=== PATIENT | female | born 2000 | race Caucasian/White ===

== ENCOUNTER 2021-01-22 10:05 | Emergency (ER) | payer MEDICAID ==
[~2021-01-22] VITALS: Ht 175.3 cm; Wt 86.0 kg
[2021-01-22 11:09] LABS: MEAN CELL VOLUME 97 fl (80.0-100.0); MEAN CORPUSCULAR HGB CONC 33 g/dl (33.0-37.0); MEAN PLATELET VOLUME 9.3 fl (7.4-10.4); PLATELET COUNT 332 K/mm3 (130-400); RED BLOOD COUNT 2.64 M/mm3 (4.10-5.30); REDCELL DISTRIBUTION WIDTH-CV 14.6 % (11.5-14.5)
[2021-01-22 11:13] LABS: HEMATOCRIT 25.5 % (37.0-47.0); HEMOGLOBIN 8.4 g/dl (12.5-16.0); MEAN CORPUSCULAR HEMOGLOBIN 32 pg (27.0-31.0)
[2021-01-22 11:21] LABS: ALANINE AMINOTRANSFERASE 15 U/L (0-55); ALBUMIN 2.2 gm/dL (3.5-5.0); ALKALINE PHOSPHATASE 152 U/L (40-150); ANION GAP 11 mmol/L (7-16); AST,SGOT 15 U/L (5-34); BILIRUBIN,TOTAL 2.5 mg/dL (0.2-1.2); BLOOD UREA NITROGEN 8 mg/dL (7-19); CALCIUM 8.8 mg/dL (8.4-10.2); CARBON DIOXIDE 24 mmol/L (22-29); CHLORIDE 105 mmol/L (98-107); CREATININE, serum 0.64 mg/dL (0.57-1.11); GLUCOSE 95 mg/dL (70-99); LIPASE < 10 U/L (8-78); POTASSIUM 3.2 mmol/L (3.5-4.5); SODIUM 140 mmol/L (136-145); TOTAL PROTEIN 6.5 gm/dL (6.2-8.1)
[2021-01-22 11:52] LABS: EOSINOPHIL 1 % (0-4); LYMPHOCYTE 5 % (20.0-51.0)
[2021-01-22 11:53] LABS: BAND 16 % (0-10); NEUTROPHILS 76 % (42.0-75.2); PLATELET ESTIMATE NORMAL (NORMAL)
[2021-01-22 12:44] VITALS: BP 119/108; PULSE 83; TEMP 98.1
== END 2021-01-22 13:00 | disposition short-term general hospital (02) ==
LOC: COL.ER 10:05
PROVIDERS: Emergency Medicine
DX: D64.9 Anemia, unspecified (principal); M79.81 Nontraumatic hematoma of soft tissue; Z87.59 Personal history of other complications of pregnancy, childbirth and the puerperium
CPT/HCPCS: J7030; Q9967